=== PATIENT | female | born 1980 | race Caucasian/White ===

== ENCOUNTER → 2025-06-27 08:27 | Outpatient (REF) | payer BC, SELFPAY | LOC: HWRAD 08:27 | PROVIDERS: ATTENDING PHYSICIAN Specialist; FAMILY PHYSICIAN Family Medicine | DX: R10.2 Pelvic and perineal pain (principal); M54.2 Cervicalgia | CPT/HCPCS: 72052; 76830; 76856 ==

== ENCOUNTER → 2025-07-20 15:08 | Outpatient (REF) | payer BC, SELFPAY | LOC: MRI 15:08 | PROVIDERS: ATTENDING PHYSICIAN Specialist; FAMILY PHYSICIAN Family Medicine | DX: R59.1 Generalized enlarged lymph nodes (principal) | CPT/HCPCS: 70544 ==